=== PATIENT | male | born 1985 | race African-American/Black ===

== ENCOUNTER 2016-04-16 10:20 | Emergency (ER) | payer OTHER, SELFPAY ==
[2016-04-16] MEDS ORDERED: Ibuprofen 800 MG TAB ONE (11:00)
== END 2016-04-16 11:05 | disposition home or self-care (01) ==
LOC: MADERS 10:20
DX: M54.5 Low back pain (principal); F17.210 Nicotine dependence, cigarettes, uncomplicated; V57.6XXA Passenger in pick-up truck or van injured in collision with fixed or stationary object in traffic accident, initial encounter
CPT/HCPCS: 99283

== ENCOUNTER 2019-03-17 08:56 | Emergency (ER) | payer OTHER, SELFPAY ==
[2019-03-17] MEDS ORDERED: Ibuprofen 800 MG TAB ONE (09:36)
[2019-03-17] MEDS ORDERED: Oseltamivir 75 MG CAP ONE (09:36)
[2019-03-17] MEDS ORDERED: Benzonatate 100 MG CAP ONE (09:36)
== END 2019-03-17 10:03 | disposition home or self-care (01) ==
LOC: MADERS 08:56
DX: J11.1 Influenza due to unidentified influenza virus with other respiratory manifestations (principal); F17.210 Nicotine dependence, cigarettes, uncomplicated
CPT/HCPCS: 99283

== ENCOUNTER 2020-05-24 17:08 | Emergency (ER) | payer SELFPAY | END 2020-05-24 18:59 | disposition home or self-care (01) | LOC: MADERS 17:08 | DX: S43.101A Unspecified dislocation of right acromioclavicular joint, initial encounter (principal); I10 Essential (primary) hypertension; F17.210 Nicotine dependence, cigarettes, uncomplicated; Z79.899 Other long term (current) drug therapy; W18.30XA Fall on same level, unspecified, initial encounter ==

== ENCOUNTER 2022-05-03 22:27 | Emergency (ER) | payer SELFPAY ==
[2022-05-03] MEDS ORDERED: Ibuprofen 800 MG TAB ONE (23:11)
[2022-05-03] MEDS ORDERED: CEFAZOLIN 1 GM VIAL ONE (23:22)
== END 2022-05-04 02:43 | disposition home or self-care (01) ==
LOC: MADERS 22:27
DX: S62.317B Displaced fracture of base of fifth metacarpal bone, left hand, initial encounter for open fracture (principal); S62.316B Displaced fracture of base of fifth metacarpal bone, right hand, initial encounter for open fracture; W22.01XA Walked into wall, initial encounter
CPT/HCPCS: 26605; 96372; J0690

== ENCOUNTER 2022-12-29 08:25 | Emergency (ER) | payer SELFPAY | END 2022-12-29 09:09 | disposition home or self-care (01) | LOC: MADERS 08:25 | DX: K04.7 Periapical abscess without sinus (principal); F17.210 Nicotine dependence, cigarettes, uncomplicated | CPT/HCPCS: 99282 ==

== ENCOUNTER 2023-08-29 11:43 | Emergency (ER) | payer SELFPAY | END 2023-08-29 12:40 | disposition home or self-care (01) | LOC: MADERS 11:43 | DX: K40.90 Unilateral inguinal hernia, without obstruction or gangrene, not specified as recurrent (principal); L73.9 Follicular disorder, unspecified; F17.220 Nicotine dependence, chewing tobacco, uncomplicated; X50.9XXA Other and unspecified overexertion or strenuous movements or postures, initial encounter | CPT/HCPCS: 99283 ==

== ENCOUNTER 2023-08-31 14:52 | Emergency (ER) | payer OTHER, SELFPAY ==
[2023-08-31 17:22] LABS: Band 1 % (5-11); Hematocrit 40.8 % (42.0-52.0); Hemoglobin 14.1 g/dL (14.0-18.0); Lymphocytes 8 % (21-51); MDiff Complete? YES; Macrocytosis SLIGHT = 6-15 cells (100X) (0-5/hpf); Manual Diff?? YES; Mean Corpuscular HGB CONC 34.7 g/dL (32.0-36.0); Mean Corpuscular Hemoglobin 35.6 pg (27.0-31.0); Mean Corpuscular Volume 102.7 fl (78.0-98.0); Mean Platelet Volume 8.2 fL (7.4-10.4); Monocytes 8 % (0-10); Neutrophil 68 % (42-75); Platelet Count 121 10x3/uL (130-400); RBC Distribution Width 12.8 % (11.5-14.5); Red Blood Cell (RBC) Count 3.97 mill/uL (4.70-6.10); White Blood Cell (WBC) Count 7.5 10x3/uL (4.8-10.8)
[2023-08-31 17:23] LABS: Platelet Adequacy Comment Appears Decreased; Reactive Lymphocytes 15 % (0-10)
[2023-08-31] MEDS ORDERED: Ketorolac Tromethamine 30 MG (1 mL) VIAL ONE (17:47)
== END 2023-08-31 18:59 | disposition home or self-care (01) ==
LOC: MADERS 14:52
DX: K40.20 Bilateral inguinal hernia, without obstruction or gangrene, not specified as recurrent (principal); N43.3 Hydrocele, unspecified; B35.6 Tinea cruris; F17.210 Nicotine dependence, cigarettes, uncomplicated
CPT/HCPCS: 74177; 83605; 85025; 96374; J1885

== ENCOUNTER 2023-11-10 19:37 | Emergency (ER) | payer OTHER | END 2023-11-10 20:44 | disposition short-term general hospital (02) | LOC: MADERS 19:37 | DX: N50.812 Left testicular pain (principal); F17.210 Nicotine dependence, cigarettes, uncomplicated | CPT/HCPCS: 99284 ==